=== PATIENT | male | born 1985 | race Caucasian/White ===

== ENCOUNTER 2016-07-25 15:22 | Emergency (ER) | payer BC ==
[2016-07-25 16:06] LABS: HEMOGLOBIN 15.2 gm/dl (14.0-17.5); RED BLOOD COUNT 5.19 M/UL (4.20-5.50)
[2016-07-25 16:26] LABS: BUN/CREATININE RATIO 11 (0-10)
== END 2016-07-25 20:07 | disposition home or self-care (01) ==
LOC: ER1 15:22
PROVIDERS: Emergency Medicine
DX: N45.3 Epididymo-orchitis (principal)
CPT/HCPCS: 36415; 76870; 80053; 81001; 83690; 85025; 87086; 96361; 96365; 96375; 96376; 99284; J0696; J2270; J2405; J7050